=== PATIENT | female | born 1970 ===

== ENCOUNTER 2023-05-12 15:20 | Inpatient (IN) | payer BC ==
[2023-05-12 16:29] LABS: Absolute Eosinophils 0.1 K/uL (0-0.5); Absolute Lymphocytes (CBC) 1.3 K/uL (0.7-4.9); Basophils % 0.2 % (0-1.3); Eosinophils % 0.6 % (0-4.4); Hematocrit 31.7 % (36.0-45.0); MCV 87.2 fL (80-100); MPV 8.2 fL (7.6-11.3); Platelets 263 thou/uL (152-406); RBC Red Blood Cell Count 3.64 M/uL (3.86-4.86)
[2023-05-12 16:35] LABS: Protime INR 1.21
[2023-05-12 16:44] LABS: Albumin 3.1 g/dL (3.4-5.0); Albumin/Globulin Ratio 0.7 (1.1-1.8); Anion Gap 8.2 mEq/L (5.0-15.0); Bilirubin Total 0.3 mg/dL (0.2-1.0); Globulin 4.3 g/dL (2.3-3.5); Potassium 3.2 mEq/L (3.5-5.1); Protein, Total 7.4 g/dL (6.4-8.2)
[2023-05-12] MEDS ORDERED: NA CHLORIDE 0.9% 100 ML ONE (17:02)
[2023-05-12] MEDS ORDERED: PIPERACIL/TAZO 3.375 GM VIAL IV ONE (17:02)
--- NOTE | 2023-05-12 17:37 | RAD REPORT ---
EXAM DESCRIPTION: CT - Abdomen Pelvis W Contrast - 05/12/2023 5:11 pm CLINICAL HISTORY: eval for abd wall abscess COMPARISON: No comparisons TECHNIQUE: Thin cut axial CT imaging of the abdomen and pelvis was performed following intravenous a dministration of 100 mL Isovue 300. Multiplanar reformats were generated and reviewed. All CT scans are performed using dose optimization technique as appropriate and may include automated exposure control or mA/KV adjustment according to patient size. FINDINGS: Crescentic focal thickening with faint marginal enhancement along the anterior right lower quadrant scan, measuring 4.9 x 3.7 x 1.7 cm, compatible with a cutaneous abscess small phlegmon as r elated AP history. Underlying with moderately pronounced subcutaneous fat stranding and edema. No bob reciable sinus tract. No suspicious findings in the lung bases. The liver, spleen, adrenal glands, and pancreas show no suspicious findings. Gallbladder and biliary tree are also without suspicious finding. Symmetric renal function is seen with no hydronephrosis or suspicious renal mass. No dilated bowel loops or bowel wall thickening. Appendix is unremarkable. No free air, free fluid or inflammatory stranding. No hernia, mass or bulky lymphadenopathy. Contour lobulation of the uterine fundus may indicate a small fibroid. Left adnexal fluid density 2.9 cm cyst, and right adnexal 3 cm c yst, likely physiologic. The urinary bladder is without significant finding. No suspicious bony findings. IMPRESSION: Lower quadrant anterior abdominal wall calcaneus phlegmon or abscess as above. No eviden ce of an underlying sinus tract or deeper fluid collections. No acute intra-abdominal process.
--- NOTE | 2023-05-12 17:47 | EDPHYS ---
Physician Documentation [facility] Name: Carolina Lobato Age: 52 yrs Sex: Female : 1970 Arrival Date: 05/12/2023 Time: 15:20 Bed 20 Private MD: ED Physician Cholo Mullen HPI: 05/12 15:39 This 52 yrs old Unknown Female presents to ER via Ambulatory with complaints of Abscess.rn 15:39 The patient presents with an abscess of the abdomen, the patient presents with a rn swollen area of the abdomen. 15:40 Description: erythematous, swollen, tense, warm. Onset: The symptoms/episode rn began/occurred 5 day(s) ago. Possible cause(s): Injection. Associated signs and symptoms: Pertinent positives:. 16:11 Modifying factors: the symptoms are alleviated by nothing, the symptoms are aggravated rn by pressure, squeezing the lesion and expressing the contents, touching. Severity of symptoms: At their worst the symptoms were moderate, in the emergency department the symptoms are unchanged. The patient has not experienced similar symptoms in the past. Patient reports give himself a Mounjaro shot on Wednesday, did not clean skin prior to injection and now has infection. Saw PCP and put on antibiotics but infection is growing in size and pain. Positive for fever and chills. No vomiting or diarrhea. Patient reports area is draining as well. 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 - Social history:: Smoking status: Patient denies any tobacco usage or history of. - Family history:: not pertinent. - Hospitalizations: : No recent hospitalization is reported. ROS: 16:11 Constitutional: Positive for fever and chills Cardiovascular: Negative for chest pain, rn palpitations, and edema, Respiratory: Negative for shortness of breath, cough, wheezing, and pleuritic chest pain, Abdomen/GI: Positive for anterior abdominal wall pain MS/Extremity: Negative for injury and deformity, Skin: Positive for cellulitis and drainage from abdominal wall Neuro: Negative for headache, weakness, numbness, tingling, and seizure, Exam: 16:11 Constitutional: This is a well developed, well nourished patient who is awake, alert, rn and in no acute distress. Cardiovascular: Tachycardic, regular. Respiratory: No increased work of breathing, no retractions or nasal flaring. Abdomen/GI: Soft, erythema of the lower abdominal wall with centralized wound, drainage, induration that is approximately 10 cm x 8 cm and tender with fluctuance. Cellulitis starts lower half of abdominal wall and extends towards pubic region. Vital Signs: 15:28 BP 152 / 88; Pulse 110; Resp 16; Temp 99.5(O); Pulse Ox 100% on R/A; Weight 101.6 kg; db Height 5 ft. 0 in. ; 16:30 BP 142 / 75; Pulse 97; Resp 18; Pulse Ox 100% ; cp4 17:30 BP 130 / 79; Pulse 99; Resp 18; Pulse Ox 100% ; cp4 18:30 BP 132 / 80; Pulse 92; Resp 18; Pulse Ox 99% ; cp4 19:30 BP 142 / 78; Pulse 91; Resp 18; Pulse Ox 100% ; cp4 20:30 BP 126 / 72; Pulse 91; Resp 18; Pulse Ox 99% ; ha1 15:28 Body Mass Index 43.74 (101.60 kg, 152.4 cm) db MDM: 15:28 Patient medically screened. rn 17:44 Differential diagnosis: abscess, cellulitis. Data reviewed: vital signs, nurses notes, nurse charge rn test result(s), radiologic studies, CT scan, and as a result, I will admit patient. 17:45 Consideration of Admission/Observation Patient was admitted/placed on observation. rn Escalation of care including admission/observation considered. Management of patient was discussed with the following: Manager Health: Dr. Yepez consulted, will see patient, agrees with IV antibiotics and admission to hospitalist service. Counseling: I had a detailed discussion with the patient and/or guardian regarding the historical points, exam findings, and any diagnostic results supporting the discharge/admit diagnosis, lab results, radiology results, the need for further work-up and treatment in the hospital. 05/12 15:34 Order name: Blood Culture Adult (2) rn 05/12 15:34 Order name: CBC with Diff; Complete Time: 16:45 rn 02/21 15:34 Order name: CMP; Complete Time: 16:45 rn 05/12 15:34 Order name: Lactate w/ 2H reflex if indic.; Complete Time: 16:45 rn 05/12 15:34 Order name: Protime (+inr); Complete Time: 16:45 rn 05/12 15:34 Order name: Ptt, Activated; Complete Time: 16:45 rn 05/12 15:35 Order name: Wound Culture rn 05/12 19:16 Order name: Urinalysis w/ reflexes EDMS 05/12 19:16 Order name: CBC with Automated Diff EDMS 05/12 19:16 Order name: CBC with Automated Diff; Complete Time: 07:05 EDMS 05/12 19:16 Order name: Comprehensive Metabolic Panel EDID 05/12 19:16 Order name: Comprehensive Metabolic Panel; Complete Time: 07:05 EDMS 05/12 15:35 Order name: CT Abd/Pelvis - IV Contrast Only; Complete Time: 17:43 rn 05/12 15:34 Order name: EKG; Complete Time: 15:34 rn 05/12 15:34 Order name: Accucheck; Complete Time: 16:26 rn 05/12 15:34 Order name: Cardiac monitoring; Complete Time: 15:50 rn 05/12 15:34 Order name: EKG - Nurse/Tech; Complete Time: 16:57 rn 05/12 15:34 Order name: IV Saline Lock - Large Bore; Complete Time: 16:26 rn 05/12 15:34 Order name: Labs collected and sent; Complete Time: 16:26 rn 05/12 15:34 Order name: O2 Per Protocol; Complete Time: 15:50 rn 05/12 15:34 Order name: O2 Sat Monitoring; Complete Time: 15:50 rn 05/12 15:34 Order name: Vital Signs; Complete Time: 15:50 rn Administered Medications: 17:03 Drug: Piperacillin-Tazobactam IVPB 3.375 grams IVPB once over 60 mins; (mix in NS 100 cp4 mL) Route: IVPB; Infused Over: 60 mins; Site: left antecubital; 18:23 Follow up: Response: No adverse reaction; IV Status: Completed infusion cp4 18:24 Drug: vancoMYCIN IVPB 1 grams IVPB once over 2 hrs Route: IVPB; Infused Over: 2 hrs; cp4 Site: left antecubital; 20:10 Follow up: Response: No adverse reaction; IV Status: Completed infusion cp4 Disposition Summary: 05/12/23 17:47 Hospitalization Ordered Notes: Hospitalization Status: Inpatient Admission rn Provider: Rd Chirinos rn Condition: Stable rn Problem: new rn Symptoms: are unchanged rn Bed/Room Type: Standard rn Location: Telemetry/MedSurg (Inpatient)(05/13/23 11:11) [facility] Room Assignment: [facility](05/13/23 11:11) [facility] Diagnosis - Cellulitis of abdominal wall - Possible phlegmon vs abscess rn Forms: - Medication Reconciliation Form rn - SBAR form rn - Leadership Thank You Letter rn Signatures: Dispatcher [employer] EDMS Cholo Mullen MD MD rn Benton, Danielle RN Aimee Corrigan rv1 Yoon Cruz 6 Christy Del Rosario cp4 Corrections: (The following items were deleted from the chart) 19:28 17:47 Telemetry/MedSurg (Inpatient) rn rv1 19:28 17:47 rn rv1 19:39 19:28 Vancomycin Level Trough ordered. EDID EDMS 05/13 11:11 05/12 19:28 [facility] ER HOLD rv1 bc6 05/13 11:11 05/12 19:28 ERHOLD- rv1 6
--- NOTE | 2023-05-12 17:47 | ER ---
Nurse's Notes [facility] Name: Carolina Lobato Age: 52 yrs Sex: Female : 1970 Arrival Date: 05/12/2023 Time: 15:20 Bed 20 Private MD: Diagnosis: Cellulitis of abdominal wall-Possible phlegmon vs abscess Presentation: 05/12 15:28 Chief complaint: Patient states: ABDOMINAL ABSCESS FROM MONJARO SHOT STARTED ON WEDNESDAY. db NOTED LARGE ABSCESS WITH BLCK CENTER, REDNESS AND DRAINAGE. Coronavirus screen: Client denies travel out of the [place] in the last 14 days. At this time, the client does not indicate any symptoms associated with coronavirus-19. Ebola Screen: Patient negative for fever greater than or equal to 101.5 degrees Fahrenheit, and additional compatible Ebola Virus Disease symptoms Patient denies exposure to infectious person. Patient denies travel to an Ebola-affected area in the 21 days before illness onset. No symptoms or risks identified at this time. Initial Sepsis Screen: Does the patient meet any 2 criteria? HR > 90 bpm. Does the patient have a suspected source of infection? Yes: Skin breakdown/wound. Risk Assessment: Do you want to hurt yourself or someone else? Patient reports no desire to harm self or others. Onset of symptoms was May 08, 2023. 15:28 Method Of Arrival: Ambulatory db 15:28 Acuity: MELODY 3 db Triage Assessment: 15:32 General: Behavior is calm, cooperative. General: Appears in no apparent distress. db comfortable. Pain: Complains of pain in abdomen. Neuro: Level of Consciousness is awake, alert, obeys commands, Oriented to person, place, time, situation. Respiratory: Airway is patent Respiratory effort is even, unlabored, Respiratory pattern is regular, symmetrical. 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 - Social history:: Smoking status: Patient denies any tobacco usage or history of. - Family history:: not pertinent. - Hospitalizations: : No recent hospitalization is reported. Screenin:26 [facility] ED Fall Risk Assessment (Adult) History of falling in the last 3 months, cp4 including since admission No falls in past 3 months (0 pts). [facility] ED Fall Risk Assessment (Adult) History of falling in the last 3 months, including since admission No falls in past 3 months (0 pts) Confusion or Disorientation No (0 pts) Intoxicated or Sedated No (0 pts) Impaired Gait No (0 pts) Mobility Assist Device Used No (0 pt) Altered Elimination No (0 pt) Score/Fall Risk Level 0 - 2 = Low Risk Oriented to surroundings, Maintained a safe environment, Educated pt \T\ family on fall prevention, incl call for assistance when getting out of bed, Assessed \T\ reinforced patient's understanding of fall precautions, Provided non-skid footwear, Hourly rounding (assess needs \T\ fall precautionary measures) done. Abuse screen: Denies threats or abuse. Nutritional screening: No deficits noted. Tuberculosis screening: No symptoms or risk factors identified. Assessment: 20:26 General: Appears in no apparent distress. Behavior is calm, cooperative, appropriate cp4 for age. Derm: Abscess located on abdomen. Vital Signs: 15:28 BP 152 / 88; Pulse 110; Resp 16; Temp 99.5(O); Pulse Ox 100% on R/A; Weight 101.6 kg; db Height 5 ft. 0 in. ; 16:30 BP 142 / 75; Pulse 97; Resp 18; Pulse Ox 100% ; cp4 17:30 BP 130 / 79; Pulse 99; Resp 18; Pulse Ox 100% ; cp4 18:30 BP 132 / 80; Pulse 92; Resp 18; Pulse Ox 99% ; cp4 19:30 BP 142 / 78; Pulse 91; Resp 18; Pulse Ox 100% ; cp4 20:30 BP 126 / 72; Pulse 91; Resp 18; Pulse Ox 99% ; ha1 15:28 Body Mass Index 43.74 (101.60 kg, 152.4 cm) db ED Course: 15:27 Patient arrived in ED. db 15:27 Cholo Mullen MD is Attending Physician. rn 15:31 Triage completed. db 15:32 Arm band placed on left wrist. Patient placed in an exam room. EKG completed in triage. db Results shown to MD. EKG completed in triage. Results shown to MD. 15:37 Christy Del Rosario is Primary Nurse. cp4 16:26 Wound Culture Sent. cp4 16:27 Blood Culture Adult (2) Sent. cp4 17:12 CT Abd/Pelvis - IV Contrast Only In Process Unspecified. EDMS 17:46 Rd Chirinos MD is Hospitalizing Provider. rn 20:26 Bed in low position. Call light in reach. Side rails up X 1. Provided Education on: cp4 admission. 20:26 No provider procedures requiring assistance completed. Inserted saline lock: 20 gauge cp4 in right antecubital area, using aseptic technique. Blood collected. 20:58 Patient admitted, IV remains in place. cp4 Administered Medications: 17:03 Drug: Piperacillin-Tazobactam IVPB 3.375 grams IVPB once over 60 mins; (mix in NS 100 cp4 mL) Route: IVPB; Infused Over: 60 mins; Site: left antecubital; 18:23 Follow up: Response: No adverse reaction; IV Status: Completed infusion cp4 18:24 Drug: vancoMYCIN IVPB 1 grams IVPB once over 2 hrs Route: IVPB; Infused Over: 2 hrs; cp4 Site: left antecubital; 20:10 Follow up: Response: No adverse reaction; IV Status: Completed infusion cp4 Medication: 20:26 VIS not applicable for this client. cp4 Outcome: 17:47 Decision to Hospitalize by Provider. rn 20:58 Admitted to ER Hold. Please see [facility] for further documentation. cp4 20:58 Condition: stable 20:58 Instructed on the need for admit, Demonstrated understanding of instructions, follow-up care, 05/13 11:59 Patient left the ED. ld1 Signatures: Dispatcher [employer] EDMS Cholo Mullen MD MD rn Sims, Lauren RN RN ld1 Aracely Medina RN RN ha1 Johanna Ramos RN RN Christy Castillo cp4 Corrections: (The following items were deleted from the chart) 05/12 15:32 15:28 BP 152 / 88; Pulse 110bpm; Resp 16bpm; Pulse Ox 100% RA; 101.6 kg; Height 5 ft. 0 db in.; BMI: 43.7; db 05/13 04:06 05/12 20:30 BP 126 / 72; Pulse 18bpm; Resp 18bpm; Pulse Ox 99%; cp4 ha1
[2023-05-12] MEDS ORDERED: VANCOMYCIN 1 GM/VIAL ONE (18:17)
[2023-05-12] MEDS ORDERED: NA CHLORIDE 0.9% 250 ML ONE (18:18)
--- NOTE | 2023-05-12 19:31 | P.HP ---
Certification for Inpatient With expected LOS: >2 Midnights Practitioner: I am a practitioner with admitting privileges, knowledge of patient current condition, hospital course, and medical plan of care. Services: Services provided to patient in accordance with Admission requirements found in Title 42 Section 412.3 of the Code of Federal Regulations Patient History Date of Service: 05/12/23 Reason for admission: Abdominal wall celuulitis History of Present Illness: 52-year-old female with a history of hypertension and prediabetes presented to the ED with complaints of abdominal wall infection and drainage that started last night. Patient takes weekly 15 mg Mounjaro pen shots and reported that her last shot was on 04/30/23 shortly after that she noticed some redness at the injection site. Because of that she she opted to hold off on the next dose however the redness eventually formed a boil so she presented to her PCP who prescribed Bactrim. She had some chills but denies nausea, vomiting and fever. She had taken 2 days treatment of Bactrim and last night the boil started producing bloody drainage and skin color change so she presented to the ED. Only abnormal labs were K+ 3.[address] abdomen and pelvis revealed lower quadrant abdominal wall cutaneous abscess small phlegmon no evidence of underlying sinus tract or deeper fluid collection. She received IV fluid, IV antibiotics and general surgery evaluation. Review of Systems 10-point ROS is otherwise unremarkable Physical Examination - Vital Signs Temperature: 99.5 F Blood Pressure: 130/76 Pulse: 88 Respirations: 16 Pulse Ox (%): 100 - Physical Exam General: Alert, In no apparent distress, Oriented x3 HEENT: Atraumatic, Normocephalic, PERRLA Neck: Supple, JVD not distended Respiratory: Clear to auscultation bilaterally, Normal air movement Cardiovascular: No edema, Regular rate/rhythm, Normal S1 S2 Gastrointestinal: Normal bowel sounds, Non-distended, Tenderness Musculoskeletal: No swelling, No erythema, No tenderness Integumentary: Skin lesion (right abdominal wall with 3cm gangrene/ulcer with bloody discharge, generalized redness), Tenderness/swelling, Erythema, Warmth Neurological: Normal gait, Normal speech, Normal strength at 5/5 x4 extr, Sensation intact - Studies Laboratory Data (last 24 hrs) 05/12/23 05/12/23 05/12/23 16:15 16:15 16:15 WBC 11.90 H Hgb 11.0 L Hct 31.7 L Plt Count 263 PT 13.2 H INR 1.21 APTT 29.6 Sodium 136 Potassium 3.2 L BUN 20 H Creatinine 0.91 Glucose 108 H Total Bilirubin 0.3 AST 9 L ALT 23 Alkaline Phosphatase 93 Assessment and Plan - Plan Abdominal wall cutaneous abscess and cellulitis Hypertension Prediabetes Morbid obesity Anxiety Plan Admit to inpatient continue IV antibiotics Vanc and cefepime Follow-up blood and wound cultures IV fluid, potassium replacement and pain control General surgeon Dr. Yepez plans for debridement tomorrow - Advance Directives Does patient have a Living Will: No Does patient have a Durable POA for Healthcare: No
[2023-05-12] MEDS: VANCOMYCIN 750 MG in NA CHLORIDE 0.9% 150 ML IVPB ONE (23:00)
[2023-05-12] MEDS: ACETAMINOPHEN 325 MG TABLET PO PRN (23:30)
[2023-05-13] MEDS ORDERED: VANCOMYCIN 1 GM/VIAL ONE (00:10)
[2023-05-13] MEDS ORDERED: NA CHLORIDE 0.9% 500 ML ONE (00:11)
[2023-05-13] MEDS ORDERED: ACETAMINOPHEN 325 MG TABLET ONE ×2 (00:11→05:09)
[2023-05-13 03:33] LABS: Albumin 2.4 g/dL (3.4-5.0); Albumin/Globulin Ratio 0.7 (1.1-1.8); Anion Gap 8.3 mEq/L (5.0-15.0); Bilirubin Total 0.2 mg/dL (0.2-1.0); Globulin 3.5 g/dL (2.3-3.5); Protein, Total 5.9 g/dL (6.4-8.2)
[2023-05-13 03:34] LABS: Potassium 3.3 mEq/L (3.5-5.1)
[2023-05-13 05:13] LABS: Absolute Eosinophils 0.1 K/uL (0-0.5); Absolute Lymphocytes (CBC) 1.5 K/uL (0.7-4.9); Basophils % 0.4 % (0-1.3); Hematocrit 29.6 % (36.0-45.0); Hemoglobin 10.2 g/dL (12.0-15.0); Lymphocytes % 14.1 % (15.3-44.8); MCV 88.6 fL (80-100); MPV 8.1 fL (7.6-11.3); Platelets 234 thou/uL (152-406); RBC Red Blood Cell Count 3.34 M/uL (3.86-4.86)
[2023-05-13] MEDS: INFLUENZA VACCINE (for 6+ mo) 0.5 ML DOSE IMVAC ONE (08:00)
[2023-05-13] MEDS ORDERED: CEFEPIME 2 GM VIAL ONE (08:20)
[2023-05-13] MEDS ORDERED: NA CHLORIDE 0.9% 100 ML ONE (08:20)
[2023-05-13] MEDS: CEFEPIME 2 GM in NA CHLORIDE 0.9% 100 ML IV SCH (09:00)
[2023-05-13] MEDS ORDERED: VANCOMYCIN 1.25 GM in NA CHLORIDE 0.9% 250 ML IVPB SCH (09:00)
[2023-05-13] MEDS ORDERED: CEFEPIME 1 GM in NA CHLORIDE 0.9% 100 ML IV SCH (09:00)
[2023-05-13] MEDS: VANCOMYCIN 1.75 GM in NA CHLORIDE 0.9% 500 ML IVPB SCH (12:51)
--- NOTE | 2023-05-13 16:07 | EKG ---
Test Date: 2023-05-12 Test Time: 16:32:59 Can Reforming Machine Operator: LYDIA MEASUREMENT RESULTS: Intervals: Rate: 95 NM: 138 QRSD: 108 QT: 348 QTc: 437 [place]: P: 62 NM: 138 QRS: 48 T: 37 INTERPRETIVE STATEMENTS: Normal sinus rhythm Right atrial enlargement Borderline ECG No previous ECG available for comparison Electronically Signed On 05-13-23 16:04:43 NATURAL DEVELOPER by Reza Tafoya
[2023-05-13] MEDS: TRAMADOL HCL 50 MG TAB PO PRN (16:44)
[2023-05-13 16:58] LABS: Specific Gravity 1.029 (1.005-1.030); Urine Bacteria <20 /HPF (<20); Urine Bilirubin NEGATIVE (Negative); Urine Blood Negative (Negative); Urine Clarity Clear (Clear); Urine Color Light-Yellow (Yellow); Urine Glucose NEGATIVE (Negative); Urine Protein TRACE (Negative); Urine RBC <5 /HPF (None Seen); Urine Urobilinogen Normal (Normal); Urine pH 6.5 (5.0-7.0)
--- NOTE | 2023-05-13 18:25 | P.PN ---
Subjective Date of Service: 05/13/23 Chief Complaint: Abdominal wall celuulitis Patient has no new complaint. She has been afebrile Physical Examination - Vital Signs Temperature: 97.6 F Blood Pressure: 135/60 Pulse: 76 Respirations: 18 Pulse Ox (%): 100 - Physical Exam General: Alert, In no apparent distress, Oriented x3, Obese HEENT: Mucous membr. moist/pink Neck: Supple, JVD not distended Respiratory: Clear to auscultation bilaterally, Normal air movement Cardiovascular: No edema, Regular rate/rhythm, Normal S1 S2 Gastrointestinal: Normal bowel sounds, Soft and benign, Non-distended, No tenderness Musculoskeletal: No swelling, No contractures, No tenderness Integumentary: Other (Necrotic wound-suprapubic aspect of abdomen, surrounding erythema which is improving) Neurological: Normal speech, Normal strength at 5/5 x4 extr - Studies Microbiology Data (last 24 hrs): 05/12/23 16:25 Wound - Abdomen Gram Stain - Final Assessment And Plan - Current Problems (Diagnosis) (1) Abdominal wall abscess Current Visit: Yes Status: Acute (2) Abdominal wall cellulitis Current Visit: Yes Status: Acute (3) Anxiety and depression Current Visit: Yes Status: Acute (4) Essential hypertension Current Visit: Yes Status: Acute (5) Morbid obesity Current Visit: Yes Status: Acute - Plan Abdominal wall cutaneous abscess and cellulitis Continue antibiotics. General surgery Dr. Yepez consulted to evaluate. Dr. Yepez is planning debridement and possible I&D of abscess tomorrow N.p.o. at midnight. Analgesics as needed. Prediabetes Check hemoglobin A1c. Patient has not needed any insulin coverage since admit. Hypertension/anxiety and depression Resume home antihypertensives Morbid obesity Weight loss by diet and exercise recommended. DVT prophylaxis:
[2023-05-13 21:34] VITALS: BMI 43.7
[2023-05-14 05:36] LABS: Absolute Eosinophils 0.1 K/uL (0-0.5); Absolute Lymphocytes (CBC) 1.2 K/uL (0.7-4.9); Basophils % 0.2 % (0-1.3); Eosinophils % 1.4 % (0-4.4); Hematocrit 27.5 % (36.0-45.0); Hemoglobin 9.7 g/dL (12.0-15.0); Lymphocytes % 12.8 % (15.3-44.8); MCV 86.9 fL (80-100); MPV 8.1 fL (7.6-11.3); Platelets 219 thou/uL (152-406); RBC Red Blood Cell Count 3.16 M/uL (3.86-4.86)
[2023-05-14 05:47] LABS: Anion Gap 7.9 mEq/L (5.0-15.0); Potassium 3.9 mEq/L (3.5-5.1)
--- NOTE | 2023-05-14 09:48 | P.CNS ---
Date of Consult: 05/14/23 PC: I was asked to see this 52-year-old female in regards to a anterior abdominal wall abscess. HPC: Patient is been doing daily injectables for weight loss. She noticed recently that the area was getting red tender and inflamed. She came to the emergency room for evaluation and treatment. PSHx: Negative PMHx: Borderline diabetes, hypertension, morbid obesity Social Hx: Negative Sys R: No cough, wheeze, shortness of breath no chest pain or palpitations. Denies any urinary complaints O/E: Awake alert vital signs are stable HEENT: Within normal limits Chest: Air entry equal bilaterally Abd: On the anterior abdominal wall, the patient has a abscess that measures approximately 7 cm in size. There are concentric circles of skin changes consisting of necrotic center with varying degrees of tissue viability extending from the center part. [place]: Intact Data: WNL Impression: This patient has an anterior abdominal wall abscess Plan: I will taken the operating room for incision, drainage and sharp debridement of this abscess. The risks of this procedure have been discussed. The possibility of bleeding, infection, need for further surgeries and procedures was described. Cosmetic deformity and ongoing treatment were outlined. She understands and wants to proceed.
[2023-05-14] MEDS: Ringers Lactate 1,000 ML IV ONE (09:50)
[2023-05-14] MEDS ORDERED: MIDAZOLAM HCL 2 MG/2 ML INJ ONE (10:58)
[2023-05-14] MEDS ORDERED: LIDOCAINE 2% MPF 5 ML VIAL ONE (10:58)
[2023-05-14] MEDS ORDERED: FENTANYL CITR 100 MCG/2 ML ONE (10:58)
[2023-05-14] MEDS ORDERED: propofoL 200 MG/20 ML VIAL IV ONE (10:58)
[2023-05-14] MEDS ORDERED: KETOROLAC 30 MG/ML INJ ONE (11:01)
[2023-05-14] MEDS ORDERED: ONDANSETRON 4 MG/2 ML VIAL ONE (11:02)
[2023-05-14] MEDS ORDERED: METOCLOPRAMIDE 10 MG/2mL INJ ONE (11:02)
[2023-05-14] MEDS ORDERED: dexAMETHasone 4 MG/ML VIAL ONE (11:02)
[2023-05-14] MEDS: FAMOTIDINE 20 MG/2 ML VIAL IV ONE (11:03)
--- NOTE | 2023-05-14 11:50 | P.OP ---
Preoperative diagnosis: Abdominal wall abscess Postoperative diagnosis: This same Primary procedure: Incision, drainage, and sharp debridement of a large anterior abdominal wal Anesthesia: General Estimated blood loss: Less than 10 cc Specimen: Necrotic debris was not sent Operative Technique: The patient brought the operating room and placed supine on the table. After the induction of adequate general endotracheal tracheal anesthesia, the area of the abdomen was prepped with a DuraPrep solution, she was draped in the usual aseptic manner. On inspection of this anterior abdominal wall abscess, with a bright Oralyte, we could see that this superficial skin area that measured approximately 7 cm in diameter had a central necrotic area. We could delineate it quite well with the bright lights. This full-thickness skin loss was sharply debrided using electrocautery and an 11 blade. Having come down through the full-thickness of the skin we encountered an abscess in the fatty tissue of the anterior abdominal wall. There was some necrotic fat which was sharply debrided. The abscess had actually extends inferiorly for a distance of approximately 4 cm on top of the fascia over the muscles. This area had a silicone from a [place]ens drain inserted into it to keep it open and aerated during the postoperative period. The grossly necrotic debris was now sharply curetted away using a cutting surgical curette. An 11 blade was used to use other obviously necrotic material. Cultures of this wound both aerobic and anaerobic were taken. The wound, now having been well explored was loosely packed with 1 inch iodoform gauze. A sterile dressing was then applied. This piece of silicone was left in and tied on itself to keep the area open and draining during the postoperative period. At the end of the procedure she was stable was sent to the recovery room. Needle sponge instrument count were correct. Complications: None Drain(s): Other (Silastic tail from BRANDON drain) Transferred to: Recovery Room Condition: Good
[2023-05-14] MEDS: FENTANYL CITR 100 MCG/2 ML ONE ×2 (12:15→12:25)
[2023-05-14] MEDS: VANCOMYCIN 1.5 GM in NA CHLORIDE 0.9% 500 ML IVPB SCH (17:02)
--- NOTE | 2023-05-14 17:46 | P.PN ---
Subjective Date of Service: 05/14/23 Chief Complaint: Abdominal wall celuulitis Patient has no new complaint. Status post debridement and I&D of abdominal wall abscess today. Patient seen after surgery today. Physical Examination - Vital Signs Temperature: 98.5 F Blood Pressure: 124/69 Pulse: 77 Respirations: 16 Pulse Ox (%): 97 - Physical Exam General: Alert, In no apparent distress, Oriented x3 Neck: JVD not distended Respiratory: Clear to auscultation bilaterally, Normal air movement Cardiovascular: No edema, Regular rate/rhythm, Normal S1 S2 Gastrointestinal: Normal bowel sounds, Soft and benign, Non-distended Musculoskeletal: No swelling Integumentary: Other (Dressed anterior abdominal wound status post I&D.) Neurological: Normal strength at 5/5 x4 extr - Studies Microbiology Data (last 24 hrs): 05/12/23 16:25 Wound - Abdomen Gram Stain - Final Assessment And Plan - Current Problems (Diagnosis) (1) Abdominal wall abscess Current Visit: Yes Status: Acute (2) Abdominal wall cellulitis Current Visit: Yes Status: Acute (3) Anxiety and depression Current Visit: Yes Status: Acute (4) Essential hypertension Current Visit: Yes Status: Acute (5) Morbid obesity Current Visit: Yes Status: Acute - Plan Abdominal wall cutaneous abscess and cellulitis Status post I&D and surgical debridement by Dr. Yepez Continue antibiotics. Follow deep tissue wound culture Analgesics as needed. Diet as tolerated. Dr. Yepez to follow. Prediabetes Patient has not needed any insulin coverage since admit. Blood sugar readings within normal limit. Hypertension/anxiety and depression Continue home antihypertensives Morbid obesity Weight loss by diet and exercise recommended. DVT prophylaxis: Lovenox
[2023-05-14] MEDS: PANTOPRAZOLE 40MG TABLET PO SCH (18:19)
[2023-05-15] MEDS: LACTULOSE 20 GM/30 ML UCUP PO PRN (00:35)
[2023-05-15] MEDS: HYDROCODONE/APAP 7.5/325 MG TAB PO PRN (02:21)
[2023-05-15] MEDS: BUPROPION HCL 75 MG PO SCH (09:00)
[2023-05-15] MEDS ORDERED: HOME MED 1 EA UNK (Esomeprazole Mag Trihydrate [Nexium] 40 MG Capsule.Dr) PO SCH (09:00)
[2023-05-15] MEDS: ONDANSETRON 4 MG/2 ML VIAL IV PRN (09:07)
--- NOTE | 2023-05-15 15:38 | P.PN ---
Subjective Date of Service: 05/15/23 Chief Complaint: Abdominal wall celuulitis Patient has no new complaint. Status post debridement and I&D of abdominal wall abscess today. No recorded fever. Patient is tolerating diet. Physical Examination - Vital Signs Temperature: 97.4 F Blood Pressure: 140/68 Pulse: 87 Respirations: 16 Pulse Ox (%): 100 - Studies Microbiology Data (last 24 hrs): 05/12/23 16:25 Wound - Abdomen Gram Stain - Final 05/12/23 16:25 Wound - Abdomen Culture & Sensitivity - Final Meth Resistant Staph Aureus Assessment And Plan - Current Problems (Diagnosis) (1) Abdominal wall abscess Current Visit: Yes Status: Acute (2) Abdominal wall cellulitis Current Visit: Yes Status: Acute (3) Anxiety and depression Current Visit: Yes Status: Acute (4) Essential hypertension Current Visit: Yes Status: Acute (5) Morbid obesity Current Visit: Yes Status: Acute - Plan Abdominal wall cutaneous abscess and cellulitis Status post I&D and surgical debridement by Dr. Yepez. Wound culture is growing MRSA sensitive to fluoroquinolones, tetracycline, Bactrim and vancomycin. Discontinue IV cefepime Continue vancomycin. Analgesics as needed. Diet as tolerated. Dr. Yepez to follow. Prediabetes Patient has not needed any insulin coverage since admit. Blood sugar readings within normal limit. Hypertension/anxiety and depression Continue home antihypertensives Morbid obesity Weight loss by diet and exercise recommended. DVT prophylaxis: Lovenox
[2023-05-15] MEDS: LOSARTAN POTASSIUM 50 MG TABLET PO SCH (20:48)
[2023-05-15] MEDS: AMLODIPINE 5 MG TAB PO SCH (20:48)
[2023-05-16] MEDS: CELECOXIB 100 MG CAPSULE PO SCH (08:20)
--- NOTE | 2023-05-16 15:10 | P.PN ---
Subjective Date of Service: 05/16/23 Chief Complaint: Abdominal wall celuulitis Patient has no new complaint. Patient was seen ambulating around the room. No recorded fever. Physical Examination - Vital Signs Temperature: 97.9 F Blood Pressure: 148/67 Pulse: 90 Respirations: 18 Pulse Ox (%): 96 - Physical Exam General: Alert, In no apparent distress, Oriented x3 HEENT: Mucous membr. moist/pink Neck: JVD not distended Respiratory: Clear to auscultation bilaterally, Normal air movement Cardiovascular: No edema, Regular rate/rhythm, Normal S1 S2 Gastrointestinal: Normal bowel sounds, Soft and benign, Non-distended, No tenderness Musculoskeletal: No swelling Integumentary: Other (Abdominal wall surgical wound-packed and dressed) Neurological: Normal strength at 5/5 x4 extr Assessment And Plan - Current Problems (Diagnosis) (1) Abdominal wall abscess Current Visit: Yes Status: Acute (2) Abdominal wall cellulitis Current Visit: Yes Status: Acute (3) Anxiety and depression Current Visit: Yes Status: Acute (4) Essential hypertension Current Visit: Yes Status: Acute (5) Morbid obesity Current Visit: Yes Status: Acute - Plan Abdominal wall cutaneous abscess and cellulitis Status post I&D and surgical debridement by Dr. Yepez. Wound culture is growing MRSA sensitive to fluoroquinolones, tetracycline, Bactrim and vancomycin. Patient seen and evaluated by infectious disease Dr. Ledbetter who noted copious amount of pus when the wound packing was removed Dr. Ledbetter recommended to continue vancomycin and resume IV cefepime. Dr. Ledbetter also recommend a more comprehensive wound care than can be provided at home and for that matter recommended LTAC. Social service consulted to evaluate for LTAC placement. Analgesics as needed. Diet as tolerated. Dr. Yepez to follow. Prediabetes Patient has not needed any insulin coverage since admit. Blood sugar readings within normal limit. Hypertension/anxiety and depression Continue home antihypertensives Morbid obesity Weight loss by diet and exercise recommended. DVT prophylaxis: Lovenox
--- NOTE | 2023-05-16 17:23 | P.PN ---
Date of Service: 05/16/23 S: Patient has no specific complaints, says her abdomen feels a whole lot better. O: Vital signs are stable, patient looks awake bright and alert moving around the bed easily. Under the dressing the wound is clean, a lot less erythema around the area minimal coming out through the BRANDON tail drain. A: Wound is clean, responding well to surgical treatment. P: The patient is getting to the point where she may be able to be discharged. She apparently was going to be sent to a LTAC. She was inquiring whether or not this could be done at her home. I feel that would be a practical way to handle this wound. I will discuss this with Dr. Simmons tomorrow as well as
[2023-05-16] MEDS: CEFEPIME 1 GM in NA CHLORIDE 0.9% 100 ML IV SCH (21:13)
--- NOTE | 2023-05-17 00:21 | CON ---
History Of Present Illness: This is a 52-year-old female. I was consulted for MRSA infection to the abdominal wall with abscess formation, status post I and D by surgical team. The patient has signif icant past medical history of hypertension and prediabetic. She came in with abdominal wall infectio n and drainage started the day prior to admission. The patient noticed redness at the site of inject ion, on Ozempic. Abdominal CT showed abdominal wall cutaneous abscess with that has been drained. The patient is currently being treated with vancomycin for MRSA infection from the wound cu ltures. Her blood cultures are showing no growth. The patient denies any headache, nausea, vomiting , chest pain. Continued to have abdominal discomfort, especially on abdominal palpation. Past Medical History: Hypertension, prediabetic. Social History: Nonsmoker, nondrinker. Family History: Noncontributory. Medications: Vancomycin. See MAR for other medications. Allergies: NO KNOWN DRUG ALLERGIES. Review of Systems: A 10-point review was performed. Physical Examination: General: This is a 52-year-old female, lying in bed, spouse by the bedside, not in any acute cardiop ulmonary distress. Vital Signs: Temperature 97, pulse 85, respirations 15, blood pressure 127/63. HEENT: Unremarkable. Neck: Supple. Lungs: Clear to auscultation. Heart: S1, S2. Regular. Abdomen: Soft. Bowel sounds present. Large abdominal wound noted with drainage in place. 10% necr otic tissue at the edges of the wound site. No active bleeding. Large amount of drainage noted on t he abdominal wall dressing. Extremities: No edema. Laboratory Data: Shows WBC 9.5 down from 11.9, hemoglobin 9.7, platelets 219. Chemistry shows BUN o f 16, creatinine 0.7. Albumin level is 2.4. Urinalysis shows no signs of infection. Last vanco tro ugh was 15.3. Micro Data: Abdominal wall wound shows from May 12 and , MRSA infection. Assessment And Plan: A 52-year-old female with significant history of prediabetes and hypertension, coming in with abdominal wall abscess, possibly at the site of injection for Ozempic, currently growi ng MRSA large abdominal wall abscess which has been I and D'ed. Because of the location of wound, we will recommend to add cefepime to the antibiotic treatment. I agree with surgical team on iodoform gauze and packing once the BRANDON drain is out. Recommend to start wound VAC. Consider long-term acute care. Case discussed with primary care and the patient and the patient's family who agrees and we wi ll consider being transferred to long-term acute care for IV antibiotic and wound care and wound earlene gement if it is okay with surgical and hospitalist team. No other recommendation at this time. Thank you Dr. Nicole for this consult. NF/MODL Voice ID: [id number] Report ID: [id number]
[2023-05-17 06:08] LABS: Absolute Eosinophils 0.1 K/uL (0-0.5); Absolute Lymphocytes (CBC) 1.4 K/uL (0.7-4.9); Basophils % 0.4 % (0-1.3); Eosinophils % 1.5 % (0-4.4); Hematocrit 31.2 % (36.0-45.0); Lymphocytes % 17.7 % (15.3-44.8); MCV 87.5 fL (80-100); MPV 7.8 fL (7.6-11.3); Platelets 329 thou/uL (152-406); RBC Red Blood Cell Count 3.57 M/uL (3.86-4.86)
[2023-05-17 06:18] LABS: Anion Gap 5.1 mEq/L (5.0-15.0); Potassium 4.1 mEq/L (3.5-5.1)
--- NOTE | 2023-05-17 09:23 | P.PN ---
Subjective Date of Service: 05/17/23 Chief Complaint: Abdominal wall celuulitis Subjective: No new changes Review of Systems 10-point ROS is otherwise unremarkable Gastrointestinal: Other (abdominal tenderness at incision site) Physical Examination - Vital Signs Temperature: 97.2 F Blood Pressure: 124/61 Pulse: 85 Respirations: 15 Pulse Ox (%): 99 - Physical Exam General: Alert, In no apparent distress, Oriented x3 HEENT: Atraumatic, Normocephalic Respiratory: Clear to auscultation bilaterally, Normal air movement Cardiovascular: Normal pulses, Edema (BLE) Gastrointestinal: Normal bowel sounds, Soft and benign Integumentary: Tenderness/swelling (abdominal wall), Erythema (abdominal wall) Neurological: Normal speech - Studies - Reviewed Microbiology Data (last 24 hrs): - Reviewed Imagings Data: - Reviewed Medications List Reviewed: Yes Assessment And Plan - Plan Problem List Abdominal wall cutaneous abscess and cellulitis Prediabetes Hypertension Morbid Obesity Abdominal wall cutaneous abscess and cellulitis - suspected at [facility] injection site - CT abdomen pelvis 05/12: "Lower quadrant anterior abdominal wall calcaneus phlegmon or abscess as above. No evidence of an underlying sinus tract or deeper fluid collections. No acute intra-abdominal process." - Wound culture: Staph aureus (MRSA) - On Cefepime and Vancomycin - s/p I&D on 05/[address] Yepez. "The abscess had actually extends inferiorly for a distance of approximately 4 cm on top of the fascia over the muscles." - Leukocytosis resolved. Afebrile. Recommendations - Abdominal wall cellulitis/abscess with large amount of drainage. Dressing s aturated with serous and green colored drainage. Recommend continuing with Vancomycin and Cefepime IV for at least 14 days. Cefepime for gram negative coverage given location of wound and greenish colored drainage from wound. Vancomycin for MRSA. Upon completing 14 days IV, consider switch to oral Bactrim DS for an additional 7 days if required. - Continue wound care per surgery team - Monitor for worsening erythema, purulent drainage - Pending LTAC vs Home Health arrangements. CM/SS following. Case discussed with Fernanda Zendejas
[2023-05-17] MEDS: Mupirocin NASAL 2 APPL/1 GM TUBE NAS SCH (09:41)
--- NOTE | 2023-05-17 16:21 | P.PN ---
Subjective Date of Service: 05/17/23 Chief Complaint: Abdominal wall celuulitis Patient has no new complaint. No issues overnight. No recorded fever. Physical Examination - Vital Signs Temperature: 97.2 F Blood Pressure: 124/61 Pulse: 85 Respirations: 17 Pulse Ox (%): 95 - Physical Exam Other Physical/Emotional Findings: General: Alert, In no apparent distress, Oriented x3. HEENT: Mucous membr. moist/pink. Neck: JVD not distended. Respiratory: Clear to auscultation bilaterally, Normal air movement. Cardio vascular: No edema, Regular rate/rhythm, Normal S1 S2. Gastrointestinal: Normal bowel sounds, Soft and benign, Non-distended, No tenderness. Musculoskeletal: No swelling. Integumentary: Abdominal wall surgical wound-packed and dressed. Neurological: Normal strength at 5/5 x4 extr - Studies Medications List Reviewed: Yes Assessment And Plan - Current Problems (Diagnosis) (1) Abdominal wall abscess Current Visit: Yes Status: Acute (2) Abdominal wall cellulitis Current Visit: Yes Status: Acute (3) Anxiety and depression Current Visit: Yes Status: Acute (4) Essential hypertension Current Visit: Yes Status: Acute (5) Morbid obesity Current Visit: Yes Status: Acute - Plan Abdominal wall cutaneous abscess and cellulitis Status post I&D and surgical debridement by Dr. Yepez. Wound culture is growing MRSA sensitive to fluoroquinolones, tetracycline, Bactrim and vancomycin. Patient seen and evaluated by infectious disease Dr. Ledbetter who noted significant amount of pus when the wound packing was removed Dr. Ledbetter recommended to continue vancomycin and resume IV cefepime. Dr. Ledbetter also recommend a more comprehensive wound care than can be provided at home and for that matter recommended LTAC. Social service consulted to evaluate for LTAC placement. Patient prefers to go home with home health for wound care. ID Dr. Ledbetter recommended at least 3 weeks of IV vancomycin if she choose to go home. Replace midline with a PICC line. Social service to assist with arrangement for home health and IV antibiotics. Analgesics as needed. Diet as tolerated. Dr. Yepez input appreciated. Patient deemed stable for discharge per Dr. Yepez. Prediabetes Patient has not needed any insulin coverage since admit. Blood sugar readings within normal limit. Hypertension/anxiety and depression Continue home antihypertensives Morbid obesity Weight loss by diet and exercise recommended. DVT prophylaxis: Lovenox
[2023-05-17] MEDS: CEFEPIME 2 GM in NA CHLORIDE 0.9% 100 ML IV SCH (20:07)
[2023-05-17] MEDS ORDERED: Mupirocin NASAL 2 APPL/1 GM TUBE NAS SCH (21:00)
--- NOTE | 2023-05-17 21:35 | RAD REPORT ---
EXAM DESCRIPTION: RAD - Chest Single View - 05/17/2023 9:17 pm CLINICAL HISTORY: Device placement PICC line placement . IMPRESSION: PICC line with its tip in the mid superior vena cava A line overlies the proximal right arm perhaps a portion of an old PICC line
--- NOTE | 2023-05-18 09:02 | P.PN ---
Date of Service: 05/18/23 Chief Complaint: Abdominal wall cellulitis Subjective: In no apparent distress. No acute events overnight. Denies any new or worsening complaints. Reports improvement in abdominal wound. Plan of care discussed with patient. Physical Examination Temp Pulse Resp BP Pulse Ox 98.1 F 82 18 139/65 96 05/18/23 04:00 05/18/23 08:57 05/18/23 07:02 05/18/23 08:57 05/18/23 07:02 General: Alert, In no apparent distress, Oriented x3 HEENT: Atraumatic, Normocephalic. Respiratory: Clear to auscultation bilaterally, Normal air movement. Cardiovascular: Regular rate and rhythm. Normal pulses. No edema. Gastrointestinal: Normal bowel sounds, Soft and benign. Abdominal surgical incision site mild tenderness. Integumentary: Tenderness/swelling abdominal wall. Dressing clean dry and intact. Neurological: Normal speech. Msk: moves all extremities, strength 5/5. Ambulatory. Laboratory Data - Reviewed Microbiology Data - Reviewed Imagings Data: - Reviewed Medications List Reviewed: Yes Assessment And Plan Problem List Abdominal wall cutaneous abscess and cellulitis Prediabetes Hypertension Morbid Obesity Abdominal wall cutaneous abscess and cellulitis - suspected at [facility] injection site - CT abdomen pelvis 05/12: "Lower quadrant anterior abdominal wall calcaneus phlegmon or abscess as above. No evidence of an underlying sinus tract or deeper fluid collections. No acute intra-abdominal process." - Wound culture: Staph aureus (MRSA) - On Cefepime and Vancomycin - s/p I&D on 05/[address] Yepez. "The abscess had actually extends inferiorly for a distance of approximately 4 cm on top of the fascia over the muscles." - Leukocytosis resolved. Afebrile. Recommendations - Abdominal wall cellulitis/abscess Recommend continuing with Vancomycin IV for at least 14 days (started 05/13). Upon completing 14 days IV, consider switch to oral Bactrim DS for an additional 7 days if required. - Continue bactroban nasal x 5 days for nasal decolonization of MRSA. - Continue wound care per surgery team - Monitor for worsening s/s such as erythema, purulent drainage, foul odor - Pending discharge home with home health for continued IV antibiotics and wound care. - Follow up with Dr. Yepez as outpatient. Patient states appointment has been scheduled. Case discussed with Fernanda Zendejas
[2023-05-18 09:32] VITALS: O2SAT 99
--- NOTE | 2023-05-18 09:57 | P.PN ---
Date of Service: 05/18/23 Subjective: ROS: 10 point ROS as noted above, otherwise negative Physical Exam: GEN: Alert, oriented, NAD HEENT: Normal conjunctiva, sclera anicteric, CV: Regular rate and rhythm, no edema Pulm: Nonlabored respirations on room air, clear bilaterally ABD: soft, nontender, nondistended MSK: no joint tenderness Integumentary: No rashes Neuro: Normal speech, normal affect PICC in place vitals reviewed Problem List: Abdominal wall cutaneous abscess / cellulitis, now s/p I&D (05/14) Prediabetes Hypertension Anxiety / Depression Abdominal wall cutaneous abscess / cellulitis, now s/p I&D (05/14) General surgery - Dr. Yepez is following s/p I&D large anterior abdominal wall (05/14) continue local wound care per surgery Blood cx (05/12): no growth wound cx (05/12 and 05/14): both grew MRSA Patient with significant amount of pus from wound packing per Dr. Ledbetter. Recommended restarting cefepime 05/16 continue IV vanc (05/13-) and cefepime (05/12-05/13, 05/16-) Given extensive wound care required / needing at least 2 weeks of IV antibiotics, ID recommending LTAC Social service consulted to evaluate for LTAC / home health. Patient would prefer home health if possible Upon completing 14 days of IV abx, consider switch to PO bactrim for 7 days if required per ID PICC line placed 05/17 ID is following continue protonix PRN analgesics / antiemetics Diet as tolerated Prediabetes Patient has not needed any insulin coverage since admit. Hypertension Anxiety / Depression continue home meds as appropriate VTE: SCD Code: Full Dispo: Home with HH vs LTAC
[2023-05-18 10:37] LABS: Absolute Eosinophils 0.1 K/uL (0-0.5); Absolute Lymphocytes (CBC) 1.2 K/uL (0.7-4.9); Basophils % 0.4 % (0-1.3); Eosinophils % 1.6 % (0-4.4); Hematocrit 29.6 % (36.0-45.0); Hemoglobin 10.3 g/dL (12.0-15.0); MCV 87.2 fL (80-100); MPV 7.3 fL (7.6-11.3); Platelets 304 thou/uL (152-406)
[2023-05-18 10:51] LABS: Anion Gap 6.2 mEq/L (5.0-15.0); Potassium 4.2 mEq/L (3.5-5.1)
--- NOTE | 2023-05-18 15:06 | P.PN ---
Date of Service: 05/18/23 S: No specific complaints, has been instructed on wound care and IV therapy. O: Patient looks well A: Surgically stable status post incision, drainage, sharp debridement of large abdominal wall abscess P: Patient is going to be discharged. She will follow-up me at the wound care center.
[2023-05-18 16:34] VITALS: BP 155/70; TEMP 97.3
--- NOTE | 2023-05-18 20:45 | P.DS ---
Admission Date: 05/12/23 Discharge Date: 05/18/23 Disposition: DC HOME/HOME HEALTH CARE Discharge Condition: GOOD Reason for Admission: Abdominal wall celuulitis Consultations: General surgery - Dr. Yepez ID - Dr. Ledbetter Brief History of Present Illness: 52 yo F, PMH: hypertension and prediabetes Patient presented to the ED with complaints of abdominal wall infection and drainage that started last night. Patient takes weekly 15 mg Mounjaro pen shots and reported that her last shot was on 04/30/23 shortly after that she noticed some redness at the injection site. Because of that she she opted to hold off on the next dose however the redness eventually formed a boil so she presented to her PCP who prescribed Bactrim. She had some chills but denies nausea, vomiting and fever. She had taken 2 days treatment of Bactrim and last night the boil started producing bloody drainage and skin color change so she presented to the ED. Only abnormal labs were K+ 3.[address] abdomen and pelvis revealed lower quadrant abdominal wall cutaneous abscess small phlegmon no evidence of underlying sinus tract or deeper fluid collection. She received IV fluid, IV antibiotics and general surgery evaluation. Hospital Course: Problem List: Abdominal wall cutaneous abscess / cellulitis, now s/p I&D (05/14) Prediabetes Hypertension Anxiety / Depression Patient presented with worsening abdominal wall infection with drainage. CT abdomen noted lower quadrant anterior abdominal wall cutaneous abscess. General surgery was consulted. Patient was taken to the OR on 05/14 for I&D with Dr. Yepez. Post operatively, wound cultures from 05/12 and 05/14 were noted to both grow MRSA. ID was consulted. Patient was given vancomycin / cefepime and had some improvement of her symptoms. Cefepime was discontinued 05/13 however was restarted 05/[address] Barnett recommendation given concern for purulent drainage from wound packing on 05/16; and eventually decided no longer needing cefepime on discharge. She will only require IV Vancomycin. Given extensive wound care required / needing IV antibiotics, ID was initially recommending LTAC however patient preferred home health. PICC line was placed 05/17 for IV antibiotics. Continue home meds as previously prescribed. New Medications: Vancomycin for 3 weeks total (started 05/13) Follow up: PCP 3-5 days General surgery - Dr. Yepez tomorrow in wound care clinic. [phone] Home Health Agency: [facility] Home Health P:[phone] F:[phone] Infusion Company for home IV antibiotics: [facility]-[id number], [place] [address] P/ Kary: [phone] F Physical Exam: GEN: Alert, oriented, NAD HEENT: Normal conjunctiva, sclera anicteric, CV: Regular rate and rhythm, no edema Pulm: Nonlabored respirations on room air, clear bilaterally ABD: soft, nontender, nondistended MSK: no joint tenderness Integumentary: No rashes Neuro: Normal speech, normal affect Vital Signs/Physical Exam: Temp Pulse Resp BP Pulse Ox 97.3 F 88 16 155/70 H 94 05/18/23 16:00 05/18/23 16:00 05/18/23 16:00 05/18/23 16:00 05/18/23 16:00 Other Physical/Emotional Findings: General: Alert, In no apparent distress, Oriented x3. HEENT: Mucous membr. moist/pink. Neck: JVD not distended. Respiratory: Clear to auscultation bilaterally, Normal air movement. Cardiovascular: No edema, Regular rate/rhythm, Normal S1 S2. Gastrointestinal: Normal bowel sounds, Soft and benign, Non-distended, No tenderness. Musculoskeletal: No swelling. Integumentary: Abdominal wall surgical wound- packed and dressed. Neurological: Normal strength at 5/5 x4 extr Laboratory Data at Discharge: WBC 8.20 thou/uL (4.3-10.9) 05/18/23 10:30 Hgb 10.3 g/dL (12.0-15.0) L 05/18/23 10:30 Hct 29.6 % (36.0-45.0) L 05/18/23 10:30 Plt Count 304 thou/uL (152-406) 05/18/23 10:30 PT 13.2 SECONDS (9.5-12.5) H 05/12/23 16:15 INR 1.21 05/12/23 16:15 APTT 29.6 SECONDS (24.3-36.9) 05/12/23 16:15 Sodium 136 mEq/L (136-145) 05/18/23 10:30 Potassium 4.2 mEq/L (3.5-5.1) 05/18/23 10:30 BUN 15 mg/dL (7-18) 05/18/23 10:30 Creatinine 0.72 mg/dL (0.55-1.02) 05/18/23 10:30 Glucose 126 mg/dL (74-106) H 05/18/23 10:30 Total Bilirubin 0.2 mg/dL (0.2-1.0) 05/13/23 02:59 AST 13 U/L (15-37) L 05/13/23 02:59 ALT 13 U/L (13-56) 05/13/23 02:59 Alkaline Phosphatase 74 U/L (45-117) D 05/13/23 02:59 Home Medications: Amlodipine [Norvasc*] 5 mg PO DAILY 05/12/23 Bupropion HCl [Wellbutrin] 75 mg PO DAILY 05/12/23 Celecoxib [Celebrex] 200 mg PO DAILY 05/12/23 Esomeprazole Mag Trihydrate [Nexium] 40 mg PO DAILY 05/12/23 Losartan Potassium [Cozaar] 25 mg PO DAILY 05/12/23 Physician Discharge Instructions: Patient presented with worsening abdominal wall infection with drainage. CT abdomen noted lower quadrant anterior abdominal wall cutaneous abscess. General surgery was consulted. Patient was taken to the OR on 05/14 for I&D with Dr. Yepez. Post operatively, wound cultures from 05/12 and 05/14 were noted to both grow MRSA. ID was consulted. Patient was given vancomycin / cefepime and had some improvement of her symptoms. Cefepime was discontinued 05/13 however was restarted 05/[address] Barnett recommendation given concern for purulent drainage from wound packing on 05/16; and eventually decided no longer needing cefepime on discharge. She will only require IV Vancomycin. Given extensive wound care required / needing IV antibiotics, ID was initially recommending LTAC however patient preferred home health. PICC line was placed 05/17 for IV antibiotics. Continue home meds as previously prescribed. New Medications: Vancomycin for 3 weeks total (started 05/13) Follow up: PCP 3-5 days General surgery - Dr. Yepez tomorrow in wound care clinic. [phone] Home Health Agency: [facility] Home Health P:[phone] F:[phone] Infusion Company for home IV antibiotics: [id number], [place] [address] P/ Kary: [phone] F Followup: Ricardo Yepez MD [ACTIVE - CAN ADMIT] - (F/U in wound healing clinic) Anabel Watts RN [Primary Care Provider] - (F/U in 3-5 days) Time spent managing pt's care (in minutes): 45
[2023-05-19] MEDS ORDERED: VANCOMYCIN 1.75 GM in NA CHLORIDE 0.9% 500 ML IVPB SCH (09:00)
== END 2023-05-18 17:28 | disposition home health service (06) | DRG 571 ==
LOC: ER 15:20 → ERHOLD 19:11 → 4TH 05-13 11:49
PROVIDERS: ADMIT Internal Medicine; ATTEND Hospitalist
PROC: 0JB80ZZ Excision of Abdomen Subcutaneous Tissue and Fascia, Open Approach (ICD-10-PCS; principal; 2023-05-14 09:30)
PROC: 02HV33Z Insertion of Infusion Device into Superior Vena Cava, Percutaneous Approach (ICD-10-PCS; 2023-05-17)
DX: L03.311 Cellulitis of abdominal wall (principal); Z68.41 Body mass index [BMI] 40.0-44.9, adult; E66.01 Morbid (severe) obesity due to excess calories; L02.211 Cutaneous abscess of abdominal wall; I10 Essential (primary) hypertension; F41.9 Anxiety disorder, unspecified; F32.A Depression, unspecified; K21.9 Gastro-esophageal reflux disease without esophagitis; B95.62 Methicillin resistant Staphylococcus aureus infection as the cause of diseases classified elsewhere; R73.03 Prediabetes
CPT/HCPCS: 36415; 71045; 74177; 80048; 80053; 80202; 81001; 83605; 85025; 85610; 85730; 87040; 87070; 87075; 87077; 87186; 87205; 93005; 94010; 96365; 96366; 96367; 99285; J0692; J1100; J2001; J2250; J2405; J2543; J2704; J2765; J3010; J7040; J7050; J7120; Q9967